=== PATIENT | male | born 1965 | race African-American/Black ===

== ENCOUNTER 2019-06-03 07:30 | Emergency (ER) | payer OTHER ==
[~2019-06-03] VITALS: Ht 185.4 cm; Wt 163.0 kg
[2019-06-03] MEDS ORDERED: VANCOMYCIN 1 G PREMIX 200 ML IV ONE (08:00)
[2019-06-03 08:40] LABS: CHLORIDE 105 mEq/L (98-107)
[2019-06-03 08:42] LABS: HEMATOCRIT. 24.3 % (42.0-52.0); HEMOGLOBIN. 7.7 g/dL (14.0-18.0); MEAN CORPUSCULAR HEMOGLOBIN 28.4 pg (28.0-32.0); MEAN CORPUSCULAR VOLUME 89.4 fL (80.0-94.0); MEAN PLATELET VOLUME 7.8 fl (7.4-10.4); PLATELET 500 x1000/uL (130-400); RED BLOOD CELL COUNT 2.72 mill/uL (4.7-6.1); RED CELL DISTRIBUTION WIDTH 14.1 % (11.6-14.6)
[2019-06-03 08:48] LABS: INR 1.1; PROTHROMBIN TIME 11.7 sec (9.6-11.0)
[2019-06-03] MEDS ORDERED: DEXTROSE 50% WATER 50ML SYRINGE IV ONE (09:15)
[2019-06-03] MEDS ORDERED: AZTREONAM 2 GM in DEXT 5% WATER 100 ML IV NR (09:15)
[2019-06-03 09:19] LABS: ATYPICAL LYMPHOCYTES 1; PLATELET ESTIMATE INCREASED
[2019-06-03 12:39] VITALS: BP 173/80
== END 2019-06-03 13:19 | disposition short-term general hospital (02) ==
LOC: ER 07:47 → CANBEDREQ 13:32
DX: N17.9 Acute kidney failure, unspecified (principal); R65.10 Systemic inflammatory response syndrome (SIRS) of non-infectious origin without acute organ dysfunction; D64.9 Anemia, unspecified; R53.1 Weakness; E11.621 Type 2 diabetes mellitus with foot ulcer; L97.529 Non-pressure chronic ulcer of other part of left foot with unspecified severity; L97.519 Non-pressure chronic ulcer of other part of right foot with unspecified severity; R53.83 Other fatigue; I13.2 Hypertensive heart and chronic kidney disease with heart failure and with stage 5 chronic kidney disease, or end stage renal disease; I50.9 Heart failure, unspecified; N18.6 End stage renal disease; E11.22 Type 2 diabetes mellitus with diabetic chronic kidney disease; Z99.2 Dependence on renal dialysis; Z88.0 Allergy status to penicillin
CPT/HCPCS: 36415; 71045; 80053; 82962; 83605; 83880; 84145; 84484; 85025; 85610; 86850; 86900; 86901; 87040; 93005; 93923; 93970; 96365; 96367; 96375; 99291; J3370; J3490; J7060

== ENCOUNTER 2019-07-07 07:58 | Emergency (ER) | payer OTHER ==
[~2019-07-07] VITALS: Ht 188 cm; Wt 136.0 kg
[2019-07-07 08:51] LABS: BASOPHILS % 0.5 % (0.0-2.0); EOSINOPHILS % 9.1 % (0.0-5.0); HEMATOCRIT. 36.8 % (42.0-52.0); HEMOGLOBIN. 12.1 g/dL (14.0-18.0); LYMPHOCYTES % 29.2 % (20.0-50.0); MEAN CORPUSCULAR HEMOGLOBIN 29.6 pg (28.0-32.0); MEAN CORPUSCULAR VOLUME 89.8 fL (80.0-94.0); MEAN PLATELET VOLUME 7.7 fl (7.4-10.4); NEUTROPHILS % 53.2 % (40.0-76.0); PLATELET 258 x1000/uL (130-400)
[2019-07-07] MEDS ORDERED: ACETAMINOPHEN 500MG TABLET PO ONE (11:45)
[2019-07-07 12:17] VITALS: BP 168/73
== END 2019-07-07 12:17 | disposition short-term general hospital (02) ==
LOC: ER 07:58
DX: Z88.0 Allergy status to penicillin (principal); E11.22 Type 2 diabetes mellitus with diabetic chronic kidney disease; I13.2 Hypertensive heart and chronic kidney disease with heart failure and with stage 5 chronic kidney disease, or end stage renal disease; I50.9 Heart failure, unspecified; N18.6 End stage renal disease; E87.5 Hyperkalemia; D63.1 Anemia in chronic kidney disease; J45.909 Unspecified asthma, uncomplicated; Z91.15 Patient's noncompliance with renal dialysis; Z99.2 Dependence on renal dialysis
CPT/HCPCS: 36415; 71045; 80048; 85025; 93005; 99285

== ENCOUNTER 2019-09-27 05:35 | Inpatient (IN) | payer OTHER, MEDICAID ==
[~2019-09-27] VITALS: Ht 188 cm; Wt 131.1 kg
[2019-09-27] MEDS ORDERED: PIPERACILLIN/TAZ 3.375G PREMIX 50 ML IV ONE (06:30)
[2019-09-27] MEDS ORDERED: VANCOMYCIN 1 G PREMIX 200 ML IV ONE (06:30)
[2019-09-27 06:43] LABS: HEMATOCRIT. 34.8 % (42.0-52.0); HEMOGLOBIN. 11.7 g/dL (14.0-18.0); MEAN CORPUSCULAR HEMOGLOBIN 30.7 pg (28.0-32.0); MEAN CORPUSCULAR VOLUME 91.3 fL (80.0-94.0); MEAN PLATELET VOLUME 8.1 fl (7.4-10.4); PLATELET 252 x1000/uL (130-400); RED BLOOD CELL COUNT 3.81 mill/uL (4.7-6.1)
[2019-09-27 06:49] LABS: CHLORIDE 93 mEq/L (98-107)
[2019-09-27 06:51] LABS: INR 1.2; PROTHROMBIN TIME 13.2 sec (9.6-11.0)
[2019-09-27 06:52] LABS: ETHANOL BLOOD < 10 mg/dL
[2019-09-27] MEDS ORDERED: ACETAMINOPHEN 500MG TABLET PO ONE (07:00)
[2019-09-27] MEDS ORDERED: INSULIN REGULAR (HUMULIN R) 300UNITS/3ML IV ONE (07:15)
[2019-09-27] MEDS ORDERED: DEXTROSE 50% WATER 50ML SYRINGE IV ONE (07:15)
[2019-09-27] MEDS ORDERED: CALCIUM GLUCONATE 1,000 MG in DEXT 5% WATER 100 ML IV ONE (07:15)
[2019-09-27] MEDS ORDERED: SODIUM BICARBONATE 8.4% 1 MEQ/ML 50ML SYR IV ONE (07:15)
[2019-09-27] MEDS ORDERED: MAGNESIUM/ALUMINUM HYDROXIDE/SIMETHICONE 30ML UDC PO PRN (08:15)
[2019-09-27] MEDS ORDERED: CLONIDINE 0.1MG TABLET PO PRN (08:15)
[2019-09-27] MEDS ORDERED: ONDANSETRON HCL 4MG/2ML INJ IV PRN (08:15)
[2019-09-27] MEDS ORDERED: ACETAMINOPHEN 325MG TABLET PO PRN ×2 (08:15)
[2019-09-27] MEDS ORDERED: PIPERACILLIN/TAZ 3.375G PREMIX 50 ML IV SCH (08:15)
[2019-09-27] MEDS ORDERED: DIPHENHYDRAMINE 50MG/ML VIAL IV PRN (08:15)
[2019-09-27] MEDS ORDERED: VANCOMYCIN 1 G PREMIX 200 ML IV SCH (09:00)
[2019-09-27 09:31] LABS: PLATELET ESTIMATE NORMAL
[2019-09-27 09:50] LABS: CLARITY URINE CLEAR (CLEAR); COLOR URINE YELLOW (YELLOW); KETONES URINE NEGATIVE (NEGATIVE); LEUKOCYTE ESTERASE URINE TRACE (NEGATIVE); NITRITE URINE NEGATIVE (NEGATIVE); OCCULT BLOOD URINE 2+ (NEGATIVE); PROTEIN URINE 3+ (NEGATIVE); SPECIFIC GRAVITY URINE 1.015 (1.005-1.030); UROBILINOGEN URINE 0.2 E.U./dL (0.2-1.0)
[2019-09-27 11:00] VITALS: BP 145/65
[2019-09-27 12:00] VITALS: BP 150/69
[2019-09-27] MEDS ORDERED: PIPERACILLIN/TAZOBACTAM 2.25 G in DEXTROSE 5% WATER 50 ML IV SCH (14:00)
[2019-09-27] MEDS: SODIUM CHLORIDE 0.9% INJ 3ML FLUSH IVF SCH ×2 (14:32→22:20)
[2019-09-27 14:52] LABS: *AMPHETAMINES SCREEN URINE NEGATIVE (NEGATIVE)
[2019-09-27 14:53] LABS: *BARBITURATES SCREEN URINE NEGATIVE (NEGATIVE); *BENZODIAZEPINES SCREEN URINE NEGATIVE (NEGATIVE); *COCAINE SCREEN URINE NEGATIVE (NEGATIVE); CANNABINOID URINE SCREEN NEGATIVE (NEGATIVE); METHADONE URINE SCREEN NEGATIVE (NEGATIVE); OPIATES URINE SCREEN NEGATIVE (NEGATIVE); PHENCYCLIDINE URINE SCREEN NEGATIVE (NEGATIVE)
[2019-09-27] MEDS ORDERED: DEXTROSE 50% WATER 50ML SYRINGE IV PRN (15:00)
[2019-09-27 16:00] VITALS: BP 198/105
[2019-09-27] MEDS: BLOOD SUGAR DIAGNOSTIC STRIP TEST SCH ×2 (17:18→21:00)
[2019-09-27] MEDS: INSULIN LISPRO 100 UNITS/ML SUBCUT SCH ×2 (17:18→21:00)
[2019-09-27] MEDS: HYDRALAZINE 20MG/ML VIAL IV PRN (17:51)
[2019-09-27 20:00] VITALS: BP 220/102
[2019-09-28] VITALS: BP 144/97
[2019-09-28 04:00] VITALS: BP 127/72
[2019-09-28 06:19] LABS: BASOPHILS % 0.6 % (0.0-2.0); HEMATOCRIT. 33.3 % (42.0-52.0); LYMPHOCYTES % 9.8 % (20.0-50.0); MEAN CORPUSCULAR HEMOGLOBIN 30.3 pg (28.0-32.0); MEAN CORPUSCULAR VOLUME 91.7 fL (80.0-94.0); MEAN PLATELET VOLUME 8.3 fl (7.4-10.4); MONOCYTES % 12.6 % (2.0-8.0); PLATELET 223 x1000/uL (130-400); RED BLOOD CELL COUNT 3.63 mill/uL (4.7-6.1); RED CELL DISTRIBUTION WIDTH 16.1 % (11.6-14.6)
[2019-09-28] MEDS: SODIUM CHLORIDE 0.9% INJ 3ML FLUSH IVF SCH ×3 (06:29→22:38)
[2019-09-28] MEDS: BLOOD SUGAR DIAGNOSTIC STRIP TEST SCH ×4 (07:40→21:28)
[2019-09-28 08:00] VITALS: BP 144/76
[2019-09-28] MEDS: INSULIN LISPRO 100 UNITS/ML SUBCUT SCH ×4 (11:17→21:00)
[2019-09-28] MEDS: ASPIRIN 81MG EC TABLET PO SCH (11:17)
[2019-09-28 12:00] VITALS: BP 140/75
[2019-09-28 16:00] VITALS: BP 162/83
[2019-09-28 20:00] VITALS: BP 134/89
[2019-09-29] VITALS (7 sets, daily range): BP systolic 138–191; BP diastolic 76–92
[2019-09-29] MEDS: HYDRALAZINE 20MG/ML VIAL IV PRN (03:35)
[2019-09-29] MEDS: SODIUM CHLORIDE 0.9% INJ 3ML FLUSH IVF SCH ×3 (05:17→22:39)
[2019-09-29] MEDS: BLOOD SUGAR DIAGNOSTIC STRIP TEST SCH ×4 (06:07→21:00)
[2019-09-29] MEDS: INSULIN LISPRO 100 UNITS/ML SUBCUT SCH ×4 (06:08→22:54)
[2019-09-29 06:39] LABS: HEMATOCRIT. 32.7 % (42.0-52.0); MEAN CORPUSCULAR HEMOGLOBIN 30.4 pg (28.0-32.0); MEAN CORPUSCULAR VOLUME 90.8 fL (80.0-94.0); MEAN PLATELET VOLUME 8.5 fl (7.4-10.4); PLATELET 214 x1000/uL (130-400); RED CELL DISTRIBUTION WIDTH 16.4 % (11.6-14.6)
[2019-09-29] MEDS: ASPIRIN 81MG EC TABLET PO SCH (08:43)
[2019-09-29 11:08] LABS: PLATELET ESTIMATE NORMAL
[2019-09-29 11:42] LABS: INR 1.1; PARTIAL THROMBOPLASTIN TIME 36.4 sec (23.4-31.0); PROTHROMBIN TIME 12.2 sec (9.6-11.0)
[2019-09-29] MEDS ORDERED: LIDOCAINE HCL 1% 20ML VIAL (Pyxis) INJ ONE (14:43)
[2019-09-29] MEDS ORDERED: SODIUM BICARBONATE 4% (2.4MEQ) 5ML VIAL IV ONE (14:43)
[2019-09-29] MEDS ORDERED: VANCOMYCIN 1 G PREMIX 200 ML IV NR (15:00)
[2019-09-29] MEDS ORDERED: CEPHALEXIN 250MG CAPSULE PO NR (16:00)
== END 2019-09-29 23:45 | disposition short-term general hospital (02) | DRG 314 ==
LOC: ER 05:35 → EDBEDREQ 06:20 → MICUSO 07:42 → EDBEDREQ 07:47 → EDBEDREQTM 07:47 → 7WST 10:23 → 6WST 09-29 03:00
PROVIDERS: ADMIT Internal Medicine; ATTEND Internal Medicine
PROC: 5A1D70Z Performance of Urinary Filtration, Intermittent, Less than 6 Hours Per Day (ICD-10-PCS; 2019-09-27)
PROC: 0JPT3XZ Removal of Tunneled Vascular Access Device from Trunk Subcutaneous Tissue and Fascia, Percutaneous Approach (ICD-10-PCS; principal; 2019-09-29)
PROC: 02HV33Z Insertion of Infusion Device into Superior Vena Cava, Percutaneous Approach (ICD-10-PCS; 2019-09-29)
PROC: B548ZZA Ultrasonography of Superior Vena Cava, Guidance (ICD-10-PCS; 2019-09-29)
PROC: B5181ZA Fluoroscopy of Superior Vena Cava using Low Osmolar Contrast, Guidance (ICD-10-PCS; 2019-09-29)
PROC: 5A1D70Z Performance of Urinary Filtration, Intermittent, Less than 6 Hours Per Day (ICD-10-PCS; 2019-09-29)
DX: T80.211A Bloodstream infection due to central venous catheter, initial encounter (principal); G92 Toxic encephalopathy; N18.6 End stage renal disease; I13.2 Hypertensive heart and chronic kidney disease with heart failure and with stage 5 chronic kidney disease, or end stage renal disease; E87.1 Hypo-osmolality and hyponatremia; I69.354 Hemiplegia and hemiparesis following cerebral infarction affecting left non-dominant side; E11.65 Type 2 diabetes mellitus with hyperglycemia; Z99.2 Dependence on renal dialysis; M10.9 Gout, unspecified; D64.9 Anemia, unspecified; E11.22 Type 2 diabetes mellitus with diabetic chronic kidney disease; E87.5 Hyperkalemia; Z20.828 Contact with and (suspected) exposure to other viral communicable diseases; Y84.8 Other medical procedures as the cause of abnormal reaction of the patient, or of later complication, without mention of misadventure at the time of the procedure; D72.810 Lymphocytopenia; E80.6 Other disorders of bilirubin metabolism; E66.9 Obesity, unspecified; I50.9 Heart failure, unspecified; J45.909 Unspecified asthma, uncomplicated; Z88.0 Allergy status to penicillin; Z79.2 Long term (current) use of antibiotics; Z79.899 Other long term (current) drug therapy; Z68.37 Body mass index [BMI] 37.0-37.9, adult
CPT/HCPCS: 36415; 36589; 71045; 76937; 77001; 80048; 80053; 80061; 80202; 80305; 80320; 81003; 82962; 83036; 83605; 83721; 84145; 84443; 84484; 85025; 87070; 87077; 93005; 93306; 96365; 99291; C1752; J0360; J0610; J1642; J1815; J2543; J3370; J3490; J7060; G0480; U0003-CS

== ENCOUNTER 2020-01-03 04:45 | Emergency (ER) | payer OTHER, MEDICAID ==
[~2020-01-03] VITALS: Ht 188 cm; Wt 100.0 kg
[2020-01-03 12:41] LABS: HEMATOCRIT. 22.4 % (42.0-52.0); HEMOGLOBIN. 7.4 g/dL (14.0-18.0); MEAN CORPUSCULAR HEMOGLOBIN 27.7 pg (28.0-32.0); MEAN CORPUSCULAR VOLUME 83.7 fL (80.0-94.0); MEAN PLATELET VOLUME 7.8 fl (7.4-10.4); PLATELET 317 x1000/uL (130-400); RED BLOOD CELL COUNT 2.68 mill/uL (4.7-6.1); RED CELL DISTRIBUTION WIDTH 16.5 % (11.6-14.6)
[2020-01-03 12:46] LABS: CHLORIDE 90 mEq/L (98-107)
[2020-01-03 12:48] LABS: INR 1.3
[2020-01-03 12:50] LABS: ETHANOL BLOOD < 10 mg/dL
[2020-01-03] MEDS ORDERED: CEFEPIME 1,000 MG in DEXTROSE 5% WATER 50 ML IV ONE (13:15)
[2020-01-03] MEDS ORDERED: INSULIN REGULAR (HUMULIN R) 300UNITS/3ML SUBCUT ONE ×2 (13:15→13:30)
[2020-01-03] MEDS ORDERED: VANCOMYCIN 1 G PREMIX 200 ML IV SCH (13:15)
[2020-01-03] MEDS ORDERED: SODIUM CHLORIDE 0.9% 500 ML IV ONE (13:15)
[2020-01-03 14:14] LABS: PLATELET ESTIMATE NORMAL
[2020-01-03 17:38] VITALS: BP 193/83
== END 2020-01-03 19:03 | disposition short-term general hospital (02) ==
LOC: ER 04:45 → EDBEDREQ 13:50 → CANBEDREQ 17:18 → ER 19:03
DX: A41.9 Sepsis, unspecified organism (principal); J18.9 Pneumonia, unspecified organism; E11.22 Type 2 diabetes mellitus with diabetic chronic kidney disease; N18.6 End stage renal disease; I69.354 Hemiplegia and hemiparesis following cerebral infarction affecting left non-dominant side; R00.0 Tachycardia, unspecified; Z98.890 Other specified postprocedural states; Z88.0 Allergy status to penicillin
CPT/HCPCS: 36415; 70450; 71045; 71250; 74176; 80053; 80320; 83605; 83690; 84484; 85025; 85610; 87040; 87077; 93005; 96365; 96368; 96372; 99291; J0692; J1815; J3370; J7060; G0480

== ENCOUNTER 2020-09-14 09:25 | Inpatient (IN) | payer OTHER, MEDICARE, MEDICAID ==
[~2020-09-14] VITALS: Ht 182.9 cm; Wt 116.1 kg
[2020-09-14 10:26] LABS: CHLORIDE 90 mEq/L (98-107)
[2020-09-14 10:27] LABS: HEMATOCRIT. 28.6 % (42.0-52.0); HEMOGLOBIN. 9.3 g/dL (14.0-18.0); MEAN CORPUSCULAR HEMOGLOBIN 29.1 pg (28.0-32.0); MEAN CORPUSCULAR VOLUME 89.3 fL (80.0-94.0); MEAN PLATELET VOLUME 7.2 fl (7.4-10.4); PLATELET 233 x1000/uL (130-400); RED BLOOD CELL COUNT 3.21 mill/uL (4.7-6.1); RED CELL DISTRIBUTION WIDTH 17.9 % (11.6-14.6)
[2020-09-14 10:36] LABS: INR 1.3; PROTHROMBIN TIME 13.6 sec (9.6-11.0)
[2020-09-14 10:58] LABS: PLATELET ESTIMATE NORMAL
[2020-09-14] MEDS ORDERED: MORPHINE SULFATE 4 MG/ML CPJ (NOT FOR IM USE) IV ONE (11:00)
[2020-09-14] MEDS ORDERED: MEROPENEM 1,000 MG in SODIUM CHLORIDE 0.9% 100 ML IV SCH (11:15)
[2020-09-14] MEDS ORDERED: SODIUM CHLORIDE 0.9% 500 ML IV NR (11:15)
[2020-09-14] MEDS ORDERED: VANCOMYCIN 1 G PREMIX 200 ML IV NR (11:15)
[2020-09-14] MEDS ORDERED: SODIUM BICARBONATE 8.4% 1 MEQ/ML 50ML SYR IV NR (11:15)
[2020-09-14] MEDS ORDERED: FUROSEMIDE 100MG/10ML VIAL IV NR (11:15)
[2020-09-14 13:03] LABS: CLARITY URINE TURBID (CLEAR); KETONES URINE NEGATIVE (NEGATIVE); LEUKOCYTE ESTERASE URINE 3+ (NEGATIVE); NITRITE URINE NEGATIVE (NEGATIVE); OCCULT BLOOD URINE 3+ (NEGATIVE); PH URINE 6.5 (4.5-8.0); PROTEIN URINE 2+ (NEGATIVE); SPECIFIC GRAVITY URINE 1.016 (1.005-1.030); UROBILINOGEN URINE 0.2 E.U./dL (0.2-1.0)
[2020-09-14 13:04] LABS: COLOR URINE BROWN (YELLOW)
[2020-09-14] MEDS ORDERED: INSULIN REGULAR (HUMULIN R) 300UNITS/3ML VIAL IV NR (14:00)
[2020-09-14] MEDS ORDERED: DEXTROSE 50% WATER 50ML SYRINGE IV NR (14:00)
[2020-09-14] MEDS ORDERED: CALCIUM GLUCONATE 100MG/ML 10ML VIAL IV ONE (15:30)
[2020-09-14] MEDS ORDERED: SODIUM CHLORIDE 0.9% 250 ML IV ONE (15:30)
[2020-09-14] MEDS ORDERED: SODIUM BICARBONATE 8.4% 1 MEQ/ML 50ML SYR IV ONE (15:30)
[2020-09-14] MEDS ORDERED: SODIUM CHLORIDE 0.9% 250 ML IV NR (15:30)
[2020-09-14] MEDS ORDERED: DEXTROSE 50% WATER 50ML SYRINGE IV ONE ×2 (15:45)
[2020-09-14] MEDS ORDERED: PIPERACILLIN/TAZ 3.375G PREMIX 50 ML IV SCH (19:00)
[2020-09-14] MEDS ORDERED: ONDANSETRON HCL 4MG/2ML INJ IV PRN (19:00)
[2020-09-14] MEDS ORDERED: CLONIDINE 0.1MG TABLET PO PRN (19:00)
[2020-09-14] MEDS ORDERED: ACETAMINOPHEN 325MG TABLET PO PRN (19:00)
[2020-09-14] MEDS ORDERED: DIPHENHYDRAMINE 50MG/ML VIAL IV PRN (19:00)
[2020-09-14] MEDS ORDERED: VANCOMYCIN 1 G PREMIX 200 ML IV SCH (19:00)
[2020-09-14] MEDS ORDERED: IPRATROPIUM/ALBUTEROL 0.5-3(2.5)MG/3ML NEB HHN PRN (19:00)
[2020-09-14] MEDS ORDERED: ENOXAPARIN 30MG/0.3ML SYR SUBCUT SCH (20:00)
[2020-09-14] MEDS ORDERED: VANCOMYCIN 500 MG PREMIX 100 ML IV SCH (20:00)
[2020-09-14] MEDS ORDERED: MEROPENEM 1000MG in NORMAL SALINE 100ML IV SCH (21:00)
[2020-09-14] MEDS: BLOOD SUGAR DIAGNOSTIC STRIP TEST SCH (21:00)
[2020-09-14] MEDS: SODIUM CHLORIDE 0.9% INJ 3ML FLUSH IVF SCH (22:00)
[2020-09-15] VITALS (9 sets, daily range): BP systolic 90–140; BP diastolic 19–76
[2020-09-15 05:10] LABS: HEMATOCRIT. 34.7 % (42.0-52.0); HEMOGLOBIN. 10.7 g/dL (14.0-18.0); MEAN CORPUSCULAR HEMOGLOBIN 28.9 pg (28.0-32.0); MEAN PLATELET VOLUME 7.3 fl (7.4-10.4); PLATELET 164 x1000/uL (130-400); RED BLOOD CELL COUNT 3.69 mill/uL (4.7-6.1); RED CELL DISTRIBUTION WIDTH 18.1 % (11.6-14.6)
[2020-09-15 05:13] LABS: CHLORIDE 95 mEq/L (98-107)
[2020-09-15] MEDS: DEXTROSE 50% WATER 50ML SYRINGE IV PRN ×3 (06:14→21:29)
[2020-09-15] MEDS: SODIUM CHLORIDE 0.9% INJ 3ML FLUSH IVF SCH ×3 (06:27→22:03)
[2020-09-15] MEDS: BLOOD SUGAR DIAGNOSTIC STRIP TEST SCH ×4 (07:48→21:39)
[2020-09-15] MEDS: DEXT 5%/0.9% NACL 1,000 ML IV SCH (10:35)
[2020-09-15] MEDS ORDERED: MEROPENEM 500MG in NORMAL SALINE 50ML IV SCH (11:00)
[2020-09-15 12:36] LABS: PLATELET ESTIMATE NORMAL
[2020-09-15] MEDS ORDERED: ENOXAPARIN 40MG/0.4ML SYR SUBCUT SCH (16:00)
[2020-09-15] MEDS ORDERED: AMIODARONE HCL 900 MG in DEXT 5% WATER 482 ML IV PRN (20:45)
[2020-09-15] MEDS ORDERED: ENOXAPARIN 80MG/0.8ML SYR SUBCUT SCH (21:00)
[2020-09-16] VITALS (56 sets, daily range): BP systolic 54–162; BP diastolic 33–124
[2020-09-16 00:25] LABS: T4 FREE 1.57 ng/dL (0.76-1.46)
[2020-09-16 00:33] LABS: CREATINE KINASE MB FRACTION 2.1 ng/mL (0.5-3.6)
[2020-09-16] MEDS ORDERED: ENOXAPARIN 80MG/0.8ML SYR SUBCUT NR (02:00)
[2020-09-16 06:00] LABS: HEMATOCRIT. 34.6 % (42.0-52.0); HEMOGLOBIN. 10.4 g/dL (14.0-18.0); MEAN CORPUSCULAR HEMOGLOBIN 28.6 pg (28.0-32.0); MEAN CORPUSCULAR VOLUME 94.6 fL (80.0-94.0); MEAN PLATELET VOLUME 7.7 fl (7.4-10.4); PLATELET 145 x1000/uL (130-400); RED BLOOD CELL COUNT 3.65 mill/uL (4.7-6.1); RED CELL DISTRIBUTION WIDTH 18.3 % (11.6-14.6)
[2020-09-16] MEDS: DEXT 5%/0.9% NACL 1,000 ML IV SCH (06:13)
[2020-09-16] MEDS: SODIUM CHLORIDE 0.9% INJ 3ML FLUSH IVF SCH ×3 (06:13→22:00)
[2020-09-16 06:25] LABS: CREATINE KINASE MB FRACTION 1.7 ng/mL (0.5-3.6)
[2020-09-16] MEDS: BLOOD SUGAR DIAGNOSTIC STRIP TEST SCH ×4 (07:29→21:20)
[2020-09-16] MEDS ORDERED: LIDOCAINE HCL 1% 20ML VIAL (Pyxis) INJ ONE (07:38)
[2020-09-16] MEDS: MEROPENEM 500MG in NORMAL SALINE 50ML IV SCH (09:08)
[2020-09-16] MEDS ORDERED: DIGOXIN 500MCG/2ML AMP IV SCH (09:30)
[2020-09-16] MEDS ORDERED: METOPROLOL TARTRATE 25MG TABLET PO SCH (10:00)
[2020-09-16] MEDS: HYDRALAZINE HCL 50MG TABLET NG SCH ×2 (13:41→21:21)
[2020-09-16 13:59] LABS: NUCLEATED RED BLOOD CELLS 2 /100 WBC; PLATELET ESTIMATE NORMAL
[2020-09-16] MEDS ORDERED: VANCOMYCIN 1 G PREMIX 200 ML IV SCH (15:00)
[2020-09-16 15:47] LABS: CREATINE KINASE MB FRACTION 2.1 ng/mL (0.5-3.6)
[2020-09-16 16:15] LABS: BG BASE EXCESS -4.3 mmol/L (-2.0-2.0); BG CARBOXYHEMOGLOBIN 1.7 % (0.5-1.5); BG DEOXYHEMOGLOBIN 1.2 % (0.0-5.0); BG FRACTION INSPIRED OXYGEN 100; BG HCO3 ACT 19.8 mmol/L (22.0-26.0); BG METHEMOGLOBIN 0.3 % (0.0-1.5); BG OXYGEN SATURATION 98.8 % (92.0-98.5); BG OXYHEMOGLOBIN 96.8 % (94.0-97.0); BG PCO2 32.9 mmHg (35.0-45.0); BG PH 7.398 (7.350-7.450); BG PO2 133.5 mmHg (75.0-100.0); BG SAMPLE SITE RIGHT BRACHIAL; BG TOTAL HEMOGLOBIN 10.8 g/dL (12.0-18.0); BG VENT MODE MASK - NRB
[2020-09-16] MEDS ORDERED: SODIUM CHLORIDE 0.9% 500 ML IV ONE (16:30)
[2020-09-16] MEDS: PHENYLEPHRINE 100 MG in DEXT 5% WATER 240 ML IV PRN ×2 (16:51→23:37)
[2020-09-16] MEDS: VASOPRESSIN 20 UNIT in SODIUM CHLORIDE 0.9% 99 ML IV PRN ×2 (16:55→22:27)
[2020-09-16] MEDS ORDERED: AMIKACIN SULFATE 650 MG in SODIUM CHLORIDE 0.9% 100 ML IV SCH (20:00)
[2020-09-16] MEDS: IPRATROPIUM/ALBUTEROL 0.5-3(2.5)MG/3ML NEB HHN SCH (20:09)
[2020-09-16] MEDS: DEXTROSE 50% WATER 50ML SYRINGE IV PRN (20:52)
[2020-09-16 21:08] LABS: HEMATOCRIT 28.2 % (42.0-52.0); HEMOGLOBIN 8.8 g/dL (14.0-18.0); MEAN CORPUSCULAR HEMOGLOBIN 28.6 pg (28.0-32.0); MEAN CORPUSCULAR VOLUME 91.6 fL (80.0-94.0); PLATELET 159 x1000/uL (130-400); RED BLOOD CELL COUNT 3.08 mill/uL (4.7-6.1); RED CELL DISTRIBUTION WIDTH 18.1 % (11.6-14.6)
[2020-09-16 21:15] LABS: CHLORIDE 96 mEq/L (98-107)
[2020-09-16] MEDS ORDERED: DIGOXIN 500MCG/2ML AMP IV NR (22:15)
[2020-09-16] MEDS: ENOXAPARIN 120MG/0.8ML SYR SUBCUT SCH (22:19)
[2020-09-16] MEDS: ACETAMINOPHEN 325MG TABLET PO PRN (23:28)
[2020-09-16] MEDS: METOPROLOL TARTRATE 50MG TABLET PO SCH (23:28)
[2020-09-17] VITALS (113 sets, daily range): BP systolic 63–221; BP diastolic 18–110
[2020-09-17] MEDS: IPRATROPIUM/ALBUTEROL 0.5-3(2.5)MG/3ML NEB HHN SCH ×4 (01:42→22:05)
[2020-09-17] MEDS: DEXT 5%/0.9% NACL 1,000 ML IV SCH (03:32)
[2020-09-17] MEDS: BLOOD SUGAR DIAGNOSTIC STRIP TEST SCH ×6 (03:33→20:50)
[2020-09-17] MEDS: HYDRALAZINE HCL 50MG TABLET NG SCH ×3 (05:18→22:00)
[2020-09-17] MEDS: SODIUM CHLORIDE 0.9% INJ 3ML FLUSH IVF SCH ×3 (05:19→22:00)
[2020-09-17 06:35] LABS: BASOPHILS % 0.7 % (0.0-2.0); EOSINOPHILS % 1.3 % (0.0-5.0); HEMOGLOBIN. 9.3 g/dL (14.0-18.0); LYMPHOCYTES % 11.1 % (20.0-50.0); MEAN CORPUSCULAR HEMOGLOBIN 27.9 pg (28.0-32.0); MEAN PLATELET VOLUME 7.5 fl (7.4-10.4); MONOCYTES % 10.8 % (2.0-8.0); NEUTROPHILS % 76.1 % (40.0-76.0); PLATELET 165 x1000/uL (130-400); RED BLOOD CELL COUNT 3.33 mill/uL (4.7-6.1)
[2020-09-17 07:25] LABS: CHLORIDE 99 mEq/L (98-107)
[2020-09-17 08:12] LABS: C REACTIVE PROTEIN QUANT > 190.0 mg/L (0.0-3.0)
[2020-09-17] MEDS ORDERED: SODIUM BICARBONATE 8.4% 1 MEQ/ML 50ML SYR IV ONE (08:13)
[2020-09-17] MEDS ORDERED: MAGNESIUM SULFATE 1G IN DEXT 5% 100ML PREMIX IV ONE (08:13)
[2020-09-17] MEDS ORDERED: AMIODARONE HCL 50MG/ML 3ML VIAL IV ONE (08:13)
[2020-09-17] MEDS ORDERED: EPINEPHRINE 0.1MG/ML (1:10,000) 10ML SYR ONE (08:13)
[2020-09-17] MEDS ORDERED: ATROPINE SULFATE 1MG/10ML SYR ONE (08:13)
[2020-09-17 08:38] LABS: BG BASE EXCESS -1.2 mmol/L (-2.0-2.0); BG CARBOXYHEMOGLOBIN 1.1 % (0.5-1.5); BG DEOXYHEMOGLOBIN 4.9 % (0.0-5.0); BG FRACTION INSPIRED OXYGEN 32; BG HCO3 ACT 23.3 mmol/L (22.0-26.0); BG METHEMOGLOBIN 0.2 % (0.0-1.5); BG OXYHEMOGLOBIN 93.8 % (94.0-97.0); BG PH 7.405 (7.350-7.450); BG SAMPLE SITE RIGHT BRACHIAL; BG TOTAL HEMOGLOBIN 9.5 g/dL (12.0-18.0); BG VENT MODE NASAL CANNULA
[2020-09-17] MEDS ORDERED: LORAZEPAM 2MG/ML CPJ IV PRN (09:45)
[2020-09-17] MEDS: MEROPENEM 500MG in NORMAL SALINE 50ML IV SCH (09:47)
[2020-09-17] MEDS: METOPROLOL TARTRATE 50MG TABLET PO SCH ×2 (09:48→20:55)
[2020-09-17] MEDS ORDERED: LIDOCAINE HCL 1% 20ML VIAL (Pyxis) INJ ONE (12:07)
[2020-09-17] MEDS: SODIUM HYPOCHLORITE 0.125% 473ML SOLUTION TOP SCH (13:23)
[2020-09-17] MEDS: ACETAMINOPHEN 325MG TABLET PO PRN (13:40)
[2020-09-17] MEDS ORDERED: DIGOXIN 500MCG/2ML AMP IV NR (15:45)
[2020-09-17] MEDS: ENOXAPARIN 120MG/0.8ML SYR SUBCUT SCH (20:56)
[2020-09-17] MEDS ORDERED: AMIODARONE HCL 900 MG in DEXT 5% WATER 482 ML IV PRN (22:15)
[2020-09-17 22:52] LABS: BG BASE EXCESS -4.4 mmol/L (-2.0-2.0); BG CARBOXYHEMOGLOBIN 0.6 % (0.5-1.5); BG DEOXYHEMOGLOBIN 0.6 % (0.0-5.0); BG FRACTION INSPIRED OXYGEN 100; BG HCO3 ACT 20.1 mmol/L (22.0-26.0); BG METHEMOGLOBIN 0.3 % (0.0-1.5); BG OXYGEN SATURATION 99.4 % (92.0-98.5); BG OXYHEMOGLOBIN 98.5 % (94.0-97.0); BG PCO2 34.4 mmHg (35.0-45.0); BG PH 7.384 (7.350-7.450); BG SAMPLE SITE LEFT BRACHIAL; BG TOTAL HEMOGLOBIN 10.2 g/dL (12.0-18.0); BG VENT MODE VENT - AC
[2020-09-18] VITALS (187 sets, daily range): BP systolic 74–194; BP diastolic 28–113
[2020-09-18] MEDS: NOREPINEPHRINE 32 MG in DEXT 5% WATER 218 ML IV PRN (00:03)
[2020-09-18] MEDS: IPRATROPIUM/ALBUTEROL 0.5-3(2.5)MG/3ML NEB HHN SCH ×4 (01:04→20:03)
[2020-09-18] MEDS: VASOPRESSIN 20 UNIT in SODIUM CHLORIDE 0.9% 99 ML IV PRN (01:33)
[2020-09-18] MEDS: PHENYLEPHRINE 100 MG in DEXT 5% WATER 240 ML IV PRN ×3 (01:33→17:55)
[2020-09-18] MEDS: DEXT 5%/0.9% NACL 1,000 ML IV SCH (01:49)
[2020-09-18] MEDS: BLOOD SUGAR DIAGNOSTIC STRIP TEST SCH ×6 (04:00→20:00)
[2020-09-18] MEDS: HYDRALAZINE HCL 50MG TABLET NG SCH (06:00)
[2020-09-18] MEDS: SODIUM CHLORIDE 0.9% INJ 3ML FLUSH IVF SCH ×3 (06:00→22:03)
[2020-09-18 06:09] LABS: HEMATOCRIT. 30.9 % (42.0-52.0); HEMOGLOBIN. 9.3 g/dL (14.0-18.0); MEAN CORPUSCULAR HEMOGLOBIN 27.1 pg (28.0-32.0); MEAN CORPUSCULAR VOLUME 90.4 fL (80.0-94.0); MEAN PLATELET VOLUME 7.8 fl (7.4-10.4); PLATELET 199 x1000/uL (130-400); RED BLOOD CELL COUNT 3.41 mill/uL (4.7-6.1); RED CELL DISTRIBUTION WIDTH 18.8 % (11.6-14.6)
[2020-09-18 06:19] LABS: PHOSPHORUS 4.6 mg/dL (2.5-4.9)
[2020-09-18] MEDS ORDERED: LIDOCAINE HCL 1% 20ML VIAL (Pyxis) INJ INFIL SCH (09:00)
[2020-09-18] MEDS ORDERED: LIDOCAINE HCL 2% JELLY 5ML TOP SCH (09:00)
[2020-09-18] MEDS: METOPROLOL TARTRATE 50MG TABLET PO SCH (09:36)
[2020-09-18] MEDS: MEROPENEM 500MG in NORMAL SALINE 50ML IV SCH (09:36)
[2020-09-18] MEDS: SODIUM HYPOCHLORITE 0.125% 473ML SOLUTION TOP SCH (09:37)
[2020-09-18 10:06] LABS: BG BASE EXCESS -9.3 mmol/L (-2.0-2.0); BG CARBOXYHEMOGLOBIN 0.4 % (0.5-1.5); BG DEOXYHEMOGLOBIN 0.2 % (0.0-5.0); BG FRACTION INSPIRED OXYGEN 80; BG HCO3 ACT 15.2 mmol/L (22.0-26.0); BG METHEMOGLOBIN 0.4 % (0.0-1.5); BG OXYGEN SATURATION 99.8 % (92.0-98.5); BG PCO2 28.4 mmHg (35.0-45.0); BG PH 7.345 (7.350-7.450); BG PO2 263.7 mmHg (75.0-100.0); BG SAMPLE SITE RIGHT BRACHIAL; BG TOTAL HEMOGLOBIN 10.1 g/dL (12.0-18.0); BG VENT MODE VENT - AC
[2020-09-18] MEDS ORDERED: SODIUM POLYSTYRENE SULFONATE 15 G/60 ML BOT PO SCH (11:00)
[2020-09-18 11:07] LABS: NUCLEATED RED BLOOD CELLS 2 /100 WBC
[2020-09-18 11:08] LABS: PLATELET ESTIMATE NORMAL
[2020-09-18] MEDS: PANTOPRAZOLE SODIUM 40 MG/VIAL IV SCH (11:17)
[2020-09-18] MEDS: SODIUM BICARBONATE 100 MEQ in DEXTROSE 5% WATER 1,000 ML IV SCH (11:17)
[2020-09-18] MEDS: ACETAMINOPHEN 325MG TABLET PO PRN (11:39)
[2020-09-18] MEDS ORDERED: [UNRECOGNIZED DRUG - REMARK] XX SCH (14:30)
[2020-09-18] MEDS: ENOXAPARIN 120MG/0.8ML SYR SUBCUT SCH (22:02)
[2020-09-19] VITALS (82 sets, daily range): BP systolic 52–182; BP diastolic 15–89
[2020-09-19] MEDS: IPRATROPIUM/ALBUTEROL 0.5-3(2.5)MG/3ML NEB HHN SCH ×4 (01:50→19:42)
[2020-09-19] MEDS: PHENYLEPHRINE 100 MG in DEXT 5% WATER 240 ML IV PRN ×3 (02:09→14:34)
[2020-09-19] MEDS: BLOOD SUGAR DIAGNOSTIC STRIP TEST SCH ×5 (04:31→16:21)
[2020-09-19] MEDS: SODIUM CHLORIDE 0.9% INJ 3ML FLUSH IVF SCH ×2 (06:00→14:25)
[2020-09-19 06:48] LABS: HEMOGLOBIN. 8.8 g/dL (14.0-18.0); MEAN CORPUSCULAR HEMOGLOBIN 27.7 pg (28.0-32.0); MEAN CORPUSCULAR VOLUME 90.9 fL (80.0-94.0); PLATELET 163 x1000/uL (130-400); RED BLOOD CELL COUNT 3.19 mill/uL (4.7-6.1); RED CELL DISTRIBUTION WIDTH 19.3 % (11.6-14.6)
[2020-09-19] MEDS ORDERED: MAGNESIUM SULFATE 4G IN WATER 100ML PREMIX IV ONE (08:11)
[2020-09-19] MEDS ORDERED: CALCIUM CHLORIDE 1GM/10ML SYR IV ONE (08:11)
[2020-09-19] MEDS ORDERED: DEXTROSE 50% WATER 50ML SYRINGE IV ONE (08:11)
[2020-09-19] MEDS ORDERED: EPINEPHRINE 0.1MG/ML (1:10,000) 10ML SYR ONE (08:11)
[2020-09-19] MEDS ORDERED: SODIUM BICARBONATE 8.4% 1 MEQ/ML 50ML SYR IV ONE (08:11)
[2020-09-19 08:54] LABS: BG BASE EXCESS -0.5 mmol/L (-2.0-2.0); BG CARBOXYHEMOGLOBIN 0.8 % (0.5-1.5); BG DEOXYHEMOGLOBIN 0.4 % (0.0-5.0); BG FRACTION INSPIRED OXYGEN 60; BG HCO3 ACT 23.4 mmol/L (22.0-26.0); BG METHEMOGLOBIN 0.4 % (0.0-1.5); BG OXYGEN SATURATION 99.6 % (92.0-98.5); BG OXYHEMOGLOBIN 98.4 % (94.0-97.0); BG PCO2 35.2 mmHg (35.0-45.0); BG PO2 179.1 mmHg (75.0-100.0); BG SAMPLE SITE RIGHT RADIAL; BG TOTAL HEMOGLOBIN 9.4 g/dL (12.0-18.0); BG VENT MODE VENT - AC
[2020-09-19] MEDS: MEROPENEM 500MG in NORMAL SALINE 50ML IV SCH (09:05)
[2020-09-19] MEDS: METOCLOPRAMIDE HCL 10MG/2ML VIAL IV SCH ×3 (09:05→17:27)
[2020-09-19] MEDS: PANTOPRAZOLE SODIUM 40 MG/VIAL IV SCH (09:05)
[2020-09-19] MEDS: SODIUM BICARBONATE 100 MEQ in DEXTROSE 5% WATER 1,000 ML IV SCH (09:06)
[2020-09-19] MEDS: SODIUM HYPOCHLORITE 0.125% 473ML SOLUTION TOP SCH (09:06)
[2020-09-19] MEDS ORDERED: HEPARIN 1000 UNITS/ML 10ML ONE (10:46)
[2020-09-19] MEDS ORDERED: LIDOCAINE HCL 1% 20ML VIAL (Pyxis) INJ ONE (10:46)
[2020-09-19] MEDS ORDERED: METOCLOPRAMIDE HCL 10MG/2ML VIAL IV SCH (12:00)
[2020-09-19 13:23] LABS: PLATELET ESTIMATE NORMAL
[2020-09-19] MEDS: VASOPRESSIN 20 UNIT in SODIUM CHLORIDE 0.9% 99 ML IV PRN (14:33)
[2020-09-19] MEDS ORDERED: AMIODARONE HCL 900 MG in DEXT 5% WATER 482 ML IV PRN (14:45)
[2020-09-19] MEDS: NOREPINEPHRINE 32 MG in DEXT 5% WATER 218 ML IV PRN (16:22)
[2020-09-19] MEDS ORDERED: VANCOMYCIN 750 MG PREMIX 150 ML IV NR (18:00)
== END 2020-09-19 22:52 | DRG 314 ==
LOC: ER 09:49 → 5EST 14:50 → CANRESERV 17:24 → ENRESERV 17:24 → EDBEDREQSVC 17:53 → ENRESERV 09-15 02:29 → CVICU 09-16 18:20
PROVIDERS: ADMIT Internal Medicine; ATTEND Internal Medicine
PROC: 5A1D70Z Performance of Urinary Filtration, Intermittent, Less than 6 Hours Per Day (ICD-10-PCS; 2020-09-14)
PROC: 5A1D70Z Performance of Urinary Filtration, Intermittent, Less than 6 Hours Per Day (ICD-10-PCS; 2020-09-15)
PROC: 05HY33Z Insertion of Infusion Device into Upper Vein, Percutaneous Approach (ICD-10-PCS; 2020-09-16)
PROC: B54MZZA Ultrasonography of Right Upper Extremity Veins, Guidance (ICD-10-PCS; 2020-09-16)
PROC: 5A1D70Z Performance of Urinary Filtration, Intermittent, Less than 6 Hours Per Day (ICD-10-PCS; 2020-09-16)
PROC: 5A1945Z Respiratory Ventilation, 24-96 Consecutive Hours (ICD-10-PCS; principal; 2020-09-17)
PROC: 0BH17EZ Insertion of Endotracheal Airway into Trachea, Via Natural or Artificial Opening (ICD-10-PCS; 2020-09-17)
PROC: 5A12012 Performance of Cardiac Output, Single, Manual (ICD-10-PCS; 2020-09-17)
PROC: 0JPT3XZ Removal of Tunneled Vascular Access Device from Trunk Subcutaneous Tissue and Fascia, Percutaneous Approach (ICD-10-PCS; 2020-09-17)
PROC: 05PYX3Z Removal of Infusion Device from Upper Vein, External Approach (ICD-10-PCS; 2020-09-17)
PROC: 4A10X4Z Monitoring of Central Nervous Electrical Activity, External Approach (ICD-10-PCS; 2020-09-19)
PROC: 05HY33Z Insertion of Infusion Device into Upper Vein, Percutaneous Approach (ICD-10-PCS; 2020-09-19)
PROC: B51M1ZA Fluoroscopy of Right Upper Extremity Veins using Low Osmolar Contrast, Guidance (ICD-10-PCS; 2020-09-19)
DX: T80.211A Bloodstream infection due to central venous catheter, initial encounter (principal); A41.02 Sepsis due to Methicillin resistant Staphylococcus aureus; E43 Unspecified severe protein-calorie malnutrition; G92 Toxic encephalopathy; R65.21 Severe sepsis with septic shock; N18.6 End stage renal disease; J96.00 Acute respiratory failure, unspecified whether with hypoxia or hypercapnia; K72.00 Acute and subacute hepatic failure without coma; E87.2 Acidosis; N39.0 Urinary tract infection, site not specified; I69.354 Hemiplegia and hemiparesis following cerebral infarction affecting left non-dominant side; G93.1 Anoxic brain damage, not elsewhere classified; E11.52 Type 2 diabetes mellitus with diabetic peripheral angiopathy with gangrene; E87.1 Hypo-osmolality and hyponatremia; I13.2 Hypertensive heart and chronic kidney disease with heart failure and with stage 5 chronic kidney disease, or end stage renal disease; M86.8X7 Other osteomyelitis, ankle and foot; L03.116 Cellulitis of left lower limb; L03.115 Cellulitis of right lower limb; I46.9 Cardiac arrest, cause unspecified; E66.01 Morbid (severe) obesity due to excess calories; E87.5 Hyperkalemia; K83.8 Other specified diseases of biliary tract; B96.5 Pseudomonas (aeruginosa) (mallei) (pseudomallei) as the cause of diseases classified elsewhere; D64.9 Anemia, unspecified; D69.6 Thrombocytopenia, unspecified; E11.22 Type 2 diabetes mellitus with diabetic chronic kidney disease; E11.649 Type 2 diabetes mellitus with hypoglycemia without coma; E11.69 Type 2 diabetes mellitus with other specified complication; E78.00 Pure hypercholesterolemia, unspecified; E78.5 Hyperlipidemia, unspecified; E83.52 Hypercalcemia; I48.91 Unspecified atrial fibrillation; I49.01 Ventricular fibrillation; I50.9 Heart failure, unspecified; I87.2 Venous insufficiency (chronic) (peripheral); Y84.8 Other medical procedures as the cause of abnormal reaction of the patient, or of later complication, without mention of misadventure at the time of the procedure; L89.156 Pressure-induced deep tissue damage of sacral region; I70.203 Unspecified atherosclerosis of native arteries of extremities, bilateral legs; Z74.01 Bed confinement status; Z99.2 Dependence on renal dialysis; Z88.0 Allergy status to penicillin; Z79.899 Other long term (current) drug therapy; Y92.89 Other specified places as the place of occurrence of the external cause; Z68.34 Body mass index [BMI] 34.0-34.9, adult
CPT/HCPCS: 36415; 36556; 36589; 36600; 70551; 71045; 73630; 73718; 74181; 76705; 76937; 78580; 80048; 80053; 80061; 80076; 80150; 80202; 81003; 82248; 82375; 82550; 82553; 82805; 82962; 83036; 83605; 83735; 84100; 84132; 84134; 84145; 84439; 84443; 84484; 85025; 85027; 85379; 85651; 86140; 87070; 87077; 87186; 93005; 93306; 93923; 93970; 94640; 95816; 99291; A6261; C1725; C1752; C1887; C1893; C9113; J0278; J0282; J0461; J0610; J1160; J1200; J1644; J1650; J1815; J1940; J2185; J2270; J2370; J2765; J3370; J3475; J3490; J7042; J7050; J7060; J7070; L8514